=== PATIENT | female | born 1930 | race African-American/Black ===

== ENCOUNTER 2016-12-25 16:37 | Observation (INO) | payer OTHER ==
[~2016-12-25 16:37] MED LIST: AMLO5TAB22 PO; ASPI81 PO; LEVE500 PO; LOVA10TA PO; METO100T PO; MOBI15TA PO; POTA-267 PO; TRAZ50TA4 PO
[2016-12-25 16:45] VITALS: BP 145/68; PULSE 66; RESP 16; TEMP 97.3; O2SAT 94
[2016-12-25] MEDS ORDERED: SODIUM CHLORIDE 0.9% FLUSH 10 ML FLUSH IVF PRN (17:15)
[2016-12-25] MEDS ORDERED: HYDR12.57 PO (17:29)
[2016-12-25] MEDS ORDERED: AMLO5TAB2 PO (17:29)
[2016-12-25] MEDS ORDERED: METO50TA PO (17:29)
[2016-12-25] MEDS ORDERED: LEVE250 PO (17:29)
[2016-12-25] MEDS ORDERED: POTA10TA38 PO (17:29)
[2016-12-25] MEDS ORDERED: OMEP40CA2 PO (17:29)
[2016-12-25] MEDS ORDERED: ASPI81CH3 CHEW (17:29)
--- NOTE | 2016-12-25 17:36 | RADRPT ---
EXAM DATE/TIME: 12/25/2016 17:04 [facility] COMPARISON: CHEST SINGLE AP, September 29, 2014, 13:40. INDICATIONS : Syncope, Short of Breath, Chest Discomfort. MEDICAL HISTORY : Cardiovascular disease. Hypertension. SURGICAL HISTORY : Hysterectomy. ENCOUNTER: Initial ACUITY: 1 day PAIN SCORE: 2/10 LOCATION: Bilateral chest FINDINGS: A single view of the chest demonstrates no focal consolidation. No effusion. Heart size enlarged. Tor tuous aorta. CONCLUSION: 1. No acute findings. Cardiac enlargement. Alber Reynolds MD on December 25, 2016 at 17:31 Board Certified Radiologist. This report was verified electronically.
[2016-12-25 17:59] LABS: AUTOMATED NEUTROPHIL # 3.9 TH/MM3 (1.8-7.7); BASOPHIL % 0.4 % (0.0-2.0); EOSINOPHIL % 0.9 % (0.0-4.0); HEMATOCRIT 36.7 % (35.0-46.0); HEMO FLAGS DIFF FINAL; LYMPH % 21.7 % (9.0-44.0); LYMPHOCYTE # 1.3 TH/MM3 (1.0-4.8); MEAN CELL VOLUME 87.1 FL (80.0-100.0); MEAN CORPUSCULAR HGB CONC 33.3 % (32.0-36.0); MONO % 9.4 % (0.0-8.0); NEUT % 67.6 % (16.0-70.0); PLATELET COUNT 155 TH/MM3 (150-450); RED BLOOD COUNT 4.21 MIL/MM3 (4.00-5.30); RED CELL DISTRIBUTION WIDTH 14.5 % (11.6-17.2); WHITE BLOOD COUNT 5.8 TH/MM3 (4.0-11.0)
--- NOTE | 2016-12-25 18:00 | PD ---
HPI Chief Complaint: Syncope/Near-Syncope Time Seen by Provider: 17:00 Travel History International Travel<30 days: No Contact w/Intl Traveler<30days: No Traveled to known affect area: No History of Present Illness HPI Patient 86-year-old female presents with her family for evaluation of a syncopal episode while in [employer] today. Patient apparently is mourning the loss of a close relative. While sitting in a pew the patient slumped forward and was unable to be aroused for 1-2 minutes. Apparently she had her eyes open and was staring directly at the ground when she slumped over. According to her son who witnessed the event she was very clammy and sweaty during the event. Patient states that currently she feels fine. Denies any chest pain shortness of breath abdominal pain nausea vomiting diarrhea. She states she feels well now. Patient states she does have a history of seizures which she's been many years she's had a seizure. She isn't on antiepileptics. Apparently she's had seizures since a previous mild stroke PFSH Past Medical History Arthritis: No Asthma: No Autoimmune Disease: No Blood Disorders: No Anxiety: No Depression: Yes Heart Rhythm Problems: Yes Cancer: No Cardiac Catheterization: No Cardiovascular Problems: Yes High Cholesterol: Yes Chemotherapy: No Chest Pain: No Congestive Heart Failure: No COPD: No Cerebrovascular Accident: Yes (2012) Diabetes: No Diminished Hearing: No Gastrointestinal Disorders: Yes GERD: No Glaucoma: No Genitourinary: No Headaches: No Hepatitis: No Hiatal Hernia: No Hypertension: Yes Kidney Stones: No Musculoskeletal: Yes Neurologic: Yes Psychiatric: No Respiratory: Yes Myocardial Infarction: No Radiation Therapy: No Renal Failure: No Seizures: Yes Sickle Cell Disease: No Sleep Apnea: No Thyroid Disease: No Ulcer: No Menopausal: Yes : 8 Para: 8 Miscarriage: 0 : 0 Past Surgical History Abdominal Surgery: No AICD: No Cardiac Surgery: No Coronary Artery Bypass Graft: No Ear Surgery: No Endocrine Surgery: No Eye Surgery: No Genitourinary Surgery: No Gynecologic Surgery: Yes (HYSTERECTOMY 1962) Hysterectomy: Yes Oral Surgery: Yes (UPPER AND LOWER DENTURES) Pacemaker: No Thoracic Surgery: No Social History Alcohol Use: No Tobacco Use: No Substance Use: No Allergies-Medications (Allergen,Severity, Reaction): Coded Allergies: Naproxen (Verified Allergy, Severe, 12/25/16) Reported Meds & Prescriptions Reported Meds & Active Scripts Active Reported Hydrochlorothiazide 12.5 Mg Cap 12.5 Mg PO DAILY Aspirin 81 Low Dose (Aspirin) 81 Mg Chew 81 Mg CHEW DAILY Omeprazole 40 Mg Cap 40 Mg PO HS Metoprolol Tartrate 50 Mg Tab 50 Mg PO BID Amlodipine (Amlodipine Besylate) 5 Mg Tab 5 Mg PO DAILY Potassium Chloride Microencaps 10 Meq Tab 10 Meq PO DAILY Keppra (Levetiracetam) 250 Mg Tab 250 Mg PO BID Review of Systems Except as stated in HPI: all other systems reviewed are Neg Physical Exam Narrative GENERAL: Well-developed well-nourished quite pleasant in no apparent distress. SKIN: Warm and dry. HEAD: Atraumatic. Normocephalic. EYES: Pupils equal and round. No scleral icterus. No injection or drainage. ENT: No nasal bleeding or discharge. Mucous membranes pink and moist. NECK: Trachea midline. No JVD. CARDIOVASCULAR: Regular rate and rhythm. No murmur appreciated. 2+ bilateral equal pulses in all 4 extremities. RESPIRATORY: No accessory muscle use. Clear to auscultation. Breath sounds equal bilaterally. GASTROINTESTINAL: Abdomen soft, non-tender, nondistended. Hepatic and splenic margins not palpable. MUSCULOSKELETAL: No obvious deformities. No clubbing. No cyanosis. No edema. NEUROLOGICAL: Awake and alert. No obvious cranial nerve deficits. Motor grossly within normal limits. Normal speech. Cranial nerves II through XII are grossly intact and nonfocal, 5 out of 5 strength in all 4 extremities. PSYCHIATRIC: Appropriate mood and affect; insight and judgment normal. Data Data Last Documented VS Vital Signs Date Time Temp Pulse Resp B/P Pulse Ox O2 Delivery O2 Flow Rate FiO2 12/25/16 19:06 98.5 60 16 162/72 97 Room Air Orders Electrocardiogram (12/25/16 16:59) Ckmb (Isoenzyme) Profile (12/25/16 17:01) Complete Blood Count With Diff (12/25/16 17:01) Comprehensive Metabolic Panel (12/25/16 17:01) Magnesium (Mg) (12/25/16 17:01) Prothrombin Time / Inr (Pt) (12/25/16 17:01) Act Partial Throm Time (Ptt) (12/25/16 17:01) Troponin I (12/25/16 17:01) Chest, Single Ap (3/25/17 17:01) Ecg Monitoring (12/25/16 17:01) Bilateral Bp Monitoring (12/25/16 17:01) Iv Access Insert/Monitor (12/25/16 17:01) Oximetry (12/25/16 17:01) Oxygen Administration (12/25/16 17:01) Sodium Chloride 0.9% Flush (Ns Flush) (12/25/16 17:15) CKMB (12/25/16 17:30) CKMB% (12/25/16 17:30) Admit Order (Ed Use Only) (12/25/16 ) Labs Laboratory Tests Test 12/25/16 17:30 White Blood Count 5.8 TH/MM3 Red Blood Count 4.21 MIL/MM3 Hemoglobin 12.2 GM/DL Hematocrit 36.7 % Mean Corpuscular Volume 87.1 FL Mean Corpuscular Hemoglobin 29.0 PG Mean Corpuscular Hemoglobin 33.3 % Concent Red Cell Distribution Width 14.5 % Platelet Count 155 TH/MM3 Mean Platelet Volume 9.2 FL Neutrophils (%) (Auto) 67.6 % Lymphocytes (%) (Auto) 21.7 % Monocytes (%) (Auto) 9.4 % Eosinophils (%) (Auto) 0.9 % Basophils (%) (Auto) 0.4 % Neutrophils # (Auto) 3.9 TH/MM3 Lymphocytes # (Auto) 1.3 TH/MM3 Monocytes # (Auto) 0.5 TH/MM3 Eosinophils # (Auto) 0.0 TH/MM3 Basophils # (Auto) 0.0 TH/MM3 CBC Comment DIFF FINAL Differential Comment Prothrombin Time 11.0 SEC Prothromb Time International 1.0 RATIO Ratio Activated Partial 23.8 SEC Thromboplast Time Sodium Level 142 MEQ/L Potassium Level 3.4 MEQ/L Chloride Level 105 MEQ/L Carbon Dioxide Level 31.0 MEQ/L Anion Gap 6 MEQ/L Blood Urea Nitrogen 18 MG/DL Creatinine 1.06 MG/DL Estimat Glomerular Filtration 59 ML/MIN Rate Random Glucose 118 MG/DL Calcium Level 9.8 MG/DL Magnesium Level 2.2 MG/DL Total Bilirubin 1.0 MG/DL Aspartate Amino Transf 18 U/L (AST/SGOT) Alanine Aminotransferase 18 U/L (ALT/SGPT) Alkaline Phosphatase 124 U/L Total Creatine Kinase 111 U/L Creatine Kinase MB 1.2 NG/ML Troponin I 0.04 NG/ML Total Protein 7.4 GM/DL Albumin 3.6 GM/DL MDM Medical Decision Making Medical Screen Exam Complete: Yes Emergency Medical Condition: Yes Interpretation(s) EKG shows normal sinus rhythm with a normal axis and normal R-wave progression. There are T-wave inversions in V4 through V6. No ST segment elevations. Intervals within normal limits. Comparison to 07/02/2015 due to T-wave inversions in V4 through V6. This an abnormal EKG. Differential Diagnosis Seizure, ACS, AMI, cardiogenic syncope, neurogenic syncope, dehydration. Narrative Course Patient roomed in the emergency department, quite pleasant and in no apparent distress. Patient does have new T-wave inversions in V4 through V6 compared to 2014. She certainly would be quite atypical for ACS. Given her syncopal event versus seizure disorder I had suggested to the family that they could consider observation status for cardiac enzyme trending and they agree to this course of action. Diagnosis Primary Impression: Syncope Qualified Code: R55 - Syncope, unspecified syncope type Admitting Information Admitting Physician Requests: Observation Condition: Stable Robert Burton MD Dec 25, 2016 18:00
[2016-12-25 18:05] LABS: APTT (PATIENT) 23.8 SEC (24.3-30.1)
[2016-12-25 18:15] VITALS: BP_SYST 161; BP_SYST 165; BP_DIAS 74; BP_DIAS 76; PULSE 62
[2016-12-25 18:29] LABS: ALT (GPT) 18 U/L (10-53); ANION GAP 6 MEQ/L (5-15); AST (GOT) 18 U/L (15-37); BLOOD UREA NITROGEN 18 MG/DL (7-18); CHLORIDE 105 MEQ/L (98-107); GLOMERULAR FILTRATION RATE 59 ML/MIN (>89); MAGNESIUM 2.2 MG/DL (1.5-2.5); POTASSIUM 3.4 MEQ/L (3.5-5.1); SODIUM (NA) 142 MEQ/L (136-145)
[2016-12-25 18:33] LABS: ALKALINE PHOSPHATASE 124 U/L (45-117); CREATINE KINASE 111 U/L (26-192)
[2016-12-25 18:46] LABS: CKMB 1.2 NG/ML (0.5-3.6)
[2016-12-25 19:06] VITALS: BP 162/72; PULSE 60; RESP 16; TEMP 98.5; O2SAT 97
[2016-12-25] MEDS ORDERED: SODIUM CHLORIDE 0.9% FLUSH 10 ML FLUSH IV FLUSH PRN (19:30)
[2016-12-25] MEDS ORDERED: ACETAMINOPHEN/HYDROcodone 325 MG/5 MG TAB PO PRN (19:30)
[2016-12-25] MEDS ORDERED: ONDANSETRON HCL 4 MG/2 ML VIAL IVP PRN (19:30)
[2016-12-25] MEDS ORDERED: BISACODYL 10 MG SUPP PR PRN (19:30)
[2016-12-25] MEDS ORDERED: ACETAMINOPHEN 325 MG TAB PO PRN (19:30)
[2016-12-25] MEDS ORDERED: MORPHINE SULFATE 4 MG/ML INJ IV PRN (19:30)
[2016-12-25] MEDS ORDERED: POTASSIUM CHLORIDE 20 MEQ CONTROLLED RELEASE TAB PO ONE (19:45)
--- NOTE | 2016-12-25 19:50 | HHI.HP ---
[facility] Narinder Xiong, Admission Diagnosis Seizure vs Syncope Diagnoses: (1) Syncope Diagnosis: Principal (2) BJ (acute kidney injury) Diagnosis: Principal (3) Hypokalemia Diagnosis: Principal (4) HTN (hypertension) Diagnosis: Principal (5) Seizure disorder Diagnosis: Principal Travel History International Travel<30 Days: No Contact w/Intl Traveler <30 Da: No Traveled to Known Affected Are: No History of Present Illness This is an 86-year-old female with a PMH of HTN, Depression, CVA and Seizure Disorder who was brought to the ER by EMS after syncopal episode while at [employer]. Per patient, she was at a earlier today, then had gone back to the [employer]. While sitting at the pew, pt states she felt she was going to "black out". Asked someone to go get her Son, and in the meantime "passed out" . Pt/family deny any seizure activity. Reports last seizure was 2002, well controlled since then on Keppra 250mg bid. On arrival, BP 145/60, HR 66, O2 sat 94% on RA, Afebrile. CBC unremarkable. Creatinine 1.06, produces 0.55 on . K+ 3.4. CXR with no acute findings. Review of Systems Except as stated in HPI: all other systems reviewed are Neg ROS: 14 point review of systems otherwise negative. Past Family Social History Past Medical History PMH: HTN, Depression, CVA and Seizure Disorder Past Surgical History PAST SURGICAL HISTORY: Hysterectomy, Dental Surgery Allergies: Coded Allergies: Naproxen (Verified Allergy, Severe, 12/25/16) Family History PAST FAMILY HISTORY: Reviewed. No h/o DM or CAD Social History PAST SOCIAL HISTORY: Negative for alcohol, tobacco or drugs. Physical Exam Vital Signs Vital Signs Date Time Temp Pulse Resp B/P Pulse Ox O2 Delivery O2 Flow Rate FiO2 12/25/16 18:15 62 161/76 165/74 12/25/16 16:45 97.3 66 16 145/68 94 Room Air Physical Exam PE: GENERAL: Extremely pleasant elderly black female in no acute distress, appears much younger than stated age. Multiple family members at bedside. HEENT: PERRLA, EOMI. No scleral icterus or conjunctival pallor. No lid lag or facial droop. CARDIOVASCULAR: Regular rate and rhythm. No obvious murmurs to auscultation. No chest tenderness to palpation. RESPIRATORY: No obvious rhonchi or wheezing. Clear to auscultation. Breath sounds equal bilaterally. GASTROINTESTINAL: Abdomen soft, non-tender, nondistended. BS normal. MUSCULOSKELETAL: Extremities without clubbing, cyanosis, or edema. No obvious deformities. NEUROLOGICAL: Awake, alert and oriented x4. No focal neurologic deficits. Moving both upper and lower extremities spontaneously. Laboratory Laboratory Tests Test 12/25/16 17:30 White Blood Count 5.8 Red Blood Count 4.21 Hemoglobin 12.2 Hematocrit 36.7 Mean Corpuscular Volume 87.1 Mean Corpuscular Hemoglobin 29.0 Mean Corpuscular Hemoglobin 33.3 Concent Red Cell Distribution Width 14.5 Platelet Count 155 Mean Platelet Volume 9.2 Neutrophils (%) (Auto) 67.6 Lymphocytes (%) (Auto) 21.7 Monocytes (%) (Auto) 9.4 Eosinophils (%) (Auto) 0.9 Basophils (%) (Auto) 0.4 Neutrophils # (Auto) 3.9 Lymphocytes # (Auto) 1.3 Monocytes # (Auto) 0.5 Eosinophils # (Auto) 0.0 Basophils # (Auto) 0.0 CBC Comment DIFF FINAL Differential Comment Prothrombin Time 11.0 Prothromb Time International 1.0 Ratio Activated Partial 23.8 Thromboplast Time Sodium Level 142 Potassium Level 3.4 Chloride Level 105 Carbon Dioxide Level 31.0 Anion Gap 6 Blood Urea Nitrogen 18 Creatinine 1.06 Estimat Glomerular Filtration 59 Rate Random Glucose 118 Calcium Level 9.8 Magnesium Level 2.2 Total Bilirubin 1.0 Aspartate Amino Transf 18 (AST/SGOT) Alanine Aminotransferase 18 (ALT/SGPT) Alkaline Phosphatase 124 Total Creatine Kinase 111 Creatine Kinase MB 1.2 Troponin I 0.04 Total Protein 7.4 Albumin 3.6 Result Diagram: 12/25/16 1730 12/25/16 1730 Assessment and Plan Problem List: (1) Syncope ICD Code: R55 Status: Acute (2) Hypokalemia ICD Code: E87.6 Status: Acute (3) BJ (acute kidney injury) ICD Code: N17.9 Status: Acute (4) Seizure disorder ICD Code: G40.909 Status: Acute (5) HTN (hypertension) ICD Code: I10 Status: Acute Assessment and Plan A/P: 1. Syncope: Likely vasovagal. Will admit to Observation, place on telemetry. Initial trop negative, check serial cardiac enzymes. IVF for hydration, check Echo. 2. Hypokalemia: K+ 3.4, will replace and recheck labs in am. 3. BJ: Creatinine 1.06, previously 0.55 on 07/02/15. IVF for hydration, check U/a, hold HCTZ for now. Repeat labs in am. 4. Seizure Disorder: H/o Seizure after CVA in 2002, on Keppra 250mg bid, well controlled, no seizure since 2002. Will resume Keppra. 5. HTN: BP 140-160's while in ER. Monitor BP, resume home medications. 6. DVT Prophylaxis: SCD/Teds. 7. Social work for d/c planning as needed. 8. Case discussed w/ ER physician at length. Anni Chairez MD Dec 25, 2016 19:50
[2016-12-25] MEDS: SODIUM CHLOR 0.9% 1000 ML INJ 1,000 ML IV SCH (19:54)
[2016-12-25 20:22] VITALS: BP 162/72; TEMP 98.5
[2016-12-25 20:53] LABS: BLOOD, URINE TRACE (NEG); GLUCOSE,URINE NEG (NEG); HYALINE CAST, URINE 2 /lpf (RARE); KETONE, URINE NEG (NEG); MUCUS URINE FEW /lpf (OCC); NITRITE,URINE NEG (NEG); PH, URINE 5.5 (5.0-8.5); SQUAMOUS EPITHELIAL CELL URINE <1 /hpf (0-5); URINE COLOR YELLOW (YELLW/STRAW)
[2016-12-25 20:54] LABS: COMMENT (UR) CULT NOT INDICATED; CULTURE IF INDICATED CULT NOT INDICATED
[2016-12-25] MEDS: SODIUM CHLORIDE 0.9% FLUSH 10 ML FLUSH IV FLUSH SCH (21:00)
[2016-12-25 21:10] VITALS: BP 169/78; PULSE 67; RESP 18; TEMP 98.1; O2SAT 96
[2016-12-25] MEDS: levETIRAcetam 250 MG TAB PO SCH (22:14)
[2016-12-25] MEDS: METOPROLOL TARTRATE 50 MG TAB PO SCH (22:14)
[2016-12-25] MEDS: PANTOPRAZOLE SOD 40 MG DELAYED RELEASE TAB PO SCH (22:14)
[2016-12-26] VITALS (7 sets, daily range): BP systolic 131–153; BP diastolic 66–85; PULSE 56–89; RESP 17–18; TEMP 95.6–98.1; O2SAT 94–98
[2016-12-26] MEDS: SODIUM CHLOR 0.9% 1000 ML INJ 1,000 ML IV SCH ×2 (05:23→15:30)
--- NOTE | 2016-12-26 08:09 | HHI.PR ---
Subjective Remarks Follow up for syncope. The patient reports feeling back to normal today. Denies any lightheadedness or dizziness. Denies any chest pain, shortness of breath, palpitations, or abdominal complaints. The patient admits to not eating well yesterday, only had some oatmeal in the morning, was out at the and grave site all day and started complaining of the heat and feeling weak. She went back to the [employer] around 4pm and was about to eat lunch when the syncopal episode occurred. She believes she passed out because she was exhausted and didn 't eat all day. Objective Vitals Vital Signs Date Time Temp Pulse Resp B/P Pulse Ox O2 Delivery O2 Flow Rate FiO2 12/26/16 03:43 97.8 80 18 152/79 97 12/26/16 00:24 63 12/25/16 21:10 98.1 67 18 169/78 96 12/25/16 20:22 98.5 60 16 162/72 97 12/25/16 19:06 98.5 60 16 162/72 97 Room Air 12/25/16 18:15 62 161/76 165/74 12/25/16 16:45 97.3 66 16 145/68 94 Room Air Result Diagram: 12/25/16 1730 12/25/16 1730 Imaging Last Impressions Chest X-Ray 12/25/16 1701 Signed Impressions: Service Date/Time: Sunday, December 25, 2016 17:04 - CONCLUSION: 1. No acute findings. Cardiac enlargement. Alber Reynolds MD Objective Remarks GENERAL: Well-nourished, well-developed elderly female patient in [facility]. SKIN: Warm and dry. No rash. HEENT: Normocephalic. Atraumatic. Pupils equal and round. No scleral icterus. No injection or drainage. Mucous membranes pink and moist. NECK: Supple. Trachea midline. CARDIOVASCULAR: Regular rate and rhythm. S1, S2 noted. No murmur appreciated. RESPIRATORY: No accessory muscle use. Clear to auscultation. Breath sounds equal bilaterally. GASTROINTESTINAL: Abdomen soft, non-tender, nondistended. Normoactive bowel sounds x4. MUSCULOSKELETAL: No obvious deformities. Extremities without clubbing, cyanosis , or edema. NEUROLOGICAL: Awake and alert. No obvious cranial nerve deficits. Motor grossly within normal limits. 5/5 muscle strength in bilateral upper and lower extremities. Normal speech. PSYCHIATRIC: Appropriate mood and affect; insight and judgment normal. Medications and IVs Current Medications Medications (Trade) Dose Ordered Sig/Norma Route Start Time Stop Time Status Last Admin (NS 1000 ml Inj) 1,000 ml @ 100 mls/hr Q10H IV 12/25/16 19:30 12/26/16 05:23 (NS Flush) 2 ml UNSCH PRN IV FLUSH 12/25/16 19:30 (NS Flush) 2 ml BID IV FLUSH 12/25/16 21:00 (Zofran Inj) 4 mg Q6H PRN IVP 12/25/16 19:30 (Dulcolax Supp) 10 mg DAILY PRN TN 12/25/16 19:30 (Tylenol) 650 mg Q6H PRN PO 12/25/16 19:30 ([place] 5-325 Mg) 1 tab Q4H PRN PO 12/25/16 19:30 (Morphine Inj) 4 mg Q3H PRN IV 12/25/16 19:30 (Norvasc) 5 mg DAILY PO 12/26/16 09:00 (Aspirin Chew) 81 mg DAILY CHEW 12/26/16 09:00 (Keppra) 250 mg BID PO 12/25/16 21:00 12/25/16 22:14 (Lopressor) 50 mg BID PO 12/25/16 21:00 12/25/16 22:14 (Protonix) 40 mg HS PO 12/25/16 21:00 12/25/16 22:14 Urinary Catheter: No Vascular Central Line Catheter: No A/P Problem List: (1) Syncope ICD Code: R55 Status: Acute (2) Hypokalemia ICD Code: E87.6 Status: Acute (3) BJ (acute kidney injury) ICD Code: N17.9 Status: Acute (4) Seizure disorder ICD Code: G40.909 Status: Acute (5) HTN (hypertension) ICD Code: I10 Status: Acute Assessment and Plan 86-year-old female with a PMH of HTN, Depression, CVA and Seizure Disorder who was brought to the ER by EMS after syncopal episode while at [employer]. Per patient, she was at a earlier, then had gone back to the [employer]. While sitting at the [facility], pt states she felt she was going to "black out". Asked someone to go get her Son, and in the meantime "passed out". Syncope: Likely vasovagal and secondary to poor oral intake, dehydration, prolonged sun exposure. Monitor on telemetry. ACS ruled out with negative serial cardiac enzymes and EKG without acute ischemic changes. Give IVF for hydration. Check Carotid U/S and Echo. Orthostatics negative. Consult PT. Hypokalemia: K+ 3.4, replaced with po KCl. Repeat labs with K 3.7. Resolved. BJ: Creatinine 1.06, previously 0.55 on 07/02/15. UA unremarkable. Give IVF for hydration. Hold HCTZ for now. Repeat labs with Cr 0.7. Resolved. Seizure Disorder: H/o Seizure after CVA in 2002, on Keppra 250mg bid, well controlled, no seizure since 2002. Resumed Keppra. HTN: BP 140-160's while in ER. Monitor BP, resume home medications except HCTZ for now, can likely restart tomorrow. Hx of CVA: in 2002. Continue patient's aspirin. DVT Prophylaxis: SCD/Teds. Written by Herlinda Hernandez, acting as scribe for Dr. Zelaya on 12/26/16 at 08:57 All or portions of this note were transcribed by scribe Herlinda ROWLEY. I, Dr. Michelle Zelaya personally performed the history, physical exam, and medical decision making; and confirmed the accuracy of the information in the transcribed note. Authenticated by Dr. Michelle Zelaya on 12/26/16 at 08:57 Discharge Planning Possible discharge today if echo and carotid U/S negative. Problem Qualifiers (1) Syncope: Qualified Code: R55 - Syncope, unspecified syncope type Herlinda Hernandez PA-C Dec 26, 2016 08:09 Michelle Zelaya MD Dec 26, 2016 14:41
[2016-12-26] MEDS: levETIRAcetam 250 MG TAB PO SCH ×2 (08:48→21:26)
[2016-12-26] MEDS: METOPROLOL TARTRATE 50 MG TAB PO SCH ×2 (08:48→21:26)
[2016-12-26] MEDS: SODIUM CHLORIDE 0.9% FLUSH 10 ML FLUSH IV FLUSH SCH (08:48)
[2016-12-26 08:57] LABS: AUTOMATED NEUTROPHIL # 2.6 TH/MM3 (1.8-7.7); BASOPHIL # 0.1 TH/MM3 (0-0.2); BASOPHIL % 1.3 % (0.0-2.0); EOSINOPHIL # 0.1 TH/MM3 (0-0.4); EOSINOPHIL % 1.4 % (0.0-4.0); HEMATOCRIT 35.6 % (35.0-46.0); HEMO FLAGS DIFF FINAL; LYMPH % 35.1 % (9.0-44.0); LYMPHOCYTE # 1.7 TH/MM3 (1.0-4.8); MEAN CELL VOLUME 86.3 FL (80.0-100.0); MEAN CORPUSCULAR HEMOGLOBIN 28.8 PG (27.0-34.0); MEAN CORPUSCULAR HGB CONC 33.3 % (32.0-36.0); MONO % 8.6 % (0.0-8.0); NEUT % 53.6 % (16.0-70.0); PLATELET COUNT 156 TH/MM3 (150-450); RED BLOOD COUNT 4.13 MIL/MM3 (4.00-5.30); RED CELL DISTRIBUTION WIDTH 14.8 % (11.6-17.2); WHITE BLOOD COUNT 4.8 TH/MM3 (4.0-11.0)
[2016-12-26] MEDS ORDERED: amLODIPine BESYLATE 5 MG TAB PO SCH (09:00)
[2016-12-26] MEDS ORDERED: ASPIRIN 81 MG CHEW TAB CHEW SCH (09:00)
[2016-12-26 09:24] LABS: ALKALINE PHOSPHATASE 115 U/L (45-117); ALT (GPT) 18 U/L (10-53); ANION GAP 7 MEQ/L (5-15); AST (GOT) 20 U/L (15-37); BICARBONATE 29.2 MEQ/L (21.0-32.0); BLOOD UREA NITROGEN 13 MG/DL (7-18); CHLORIDE 107 MEQ/L (98-107); GLOMERULAR FILTRATION RATE 96 ML/MIN (>89); POTASSIUM 3.7 MEQ/L (3.5-5.1); SODIUM (NA) 143 MEQ/L (136-145); TOTAL BILIRUBIN ADULT 1.2 MG/DL (0.2-1.0)
--- NOTE | 2016-12-26 16:03 | EKG ---
Date Performed: 12/25/2016 Time Performed: 17:18:58 PTAGE: 86 years EKG: SINUS BRADYCARDIA INFERIOR MYOCARDIAL INFARCTION MODERATE T-WAVE ABNORMALITY, CONSIDER ANTE ROLATERAL ISCHEMIA T wave abnormality very slightly more prominent from the prior tracing ABNORMAL EC G PREVIOUS TRACING : 07/02/2015 18.47 DOCTOR: Mason Burnette Interpretating Date/Time 12/26/2016 16:01:05
--- NOTE | 2016-12-26 16:35 | RADRPT ---
EXAM DATE/TIME: 12/26/2016 12:34 [facility] COMPARISON: No previous studies available for comparison. INDICATIONS : Syncope. MEDICAL HISTORY : Hypercholesterolemia. Hypertension. Seizures. Cerebrovascular accident. Syncope. Irregular heartbeat. . Depression. SURGICAL HISTORY : Hysterectomy. Cataract removal. ENCOUNTER: Initial ACUITY: 1 day PAIN SCORE: 0/10 LOCATION: Bilateral neck PEAK SYSTOLIC VELOCITIES (cm/sec): ICA/CCA RATIO: Right: 1.0 Left: 1.6 ICA: Right: 77 Left: 96 CCA: Right: 77 Left: 60 ECA: Right: 75 Left: 64 VERTEBRAL: Right: 46 antegrade Left: 47 antegrade Elevated flow velocities and ICA/CCA ratios have been found to correlate with increased degrees of vessel stenosis, calculated as percentage of diameter relative to a normal segment of distal ICA/CCA FINDINGS: RIGHT CAROTID: No significant stenosis is visualized. The waveforms are within normal limits. LEFT CAROTID: No significant stenosis is visualized. The waveforms are within normal limits. VERTEBRAL ARTERIES: Antegrade flow is seen in both vertebral arteries. MISCELLANEOUS: None. CONCLUSION: 1. Trace plaque within the carotid arteries bilaterally. No significant stenosis. Vertebral artery fl ow antegrade. Alber Reynolds MD on December 26, 2016 at 16:32 Board Certified Radiologist. This report was verified electronically.
--- NOTE | 2016-12-26 17:30 | HHI.DCPOC ---
Discharge Care Plan Diagnosis: (1) Syncope (2) Dehydration (3) HTN (hypertension) (4) Seizure disorder Goals to Promote Your Health * To prevent worsening of your condition and complications * To maintain your health at the optimal level Directions to Meet Your Goals Take your medications as prescribed Follow your dietary instruction Follow activity as directed Keep your appointments as scheduled Take your immunizations and boosters as scheduled If your symptoms worsen call your PCP, if no PCP go to Urgent Care Center or Emergency Room Smoking is Dangerous to Your Health. Avoid second hand smoke Call the 24-hour hour crisis hotline for domestic abuse at Herlinda Hernandez PA-C Dec 26, 2016 17:30 Michelle Zelaya MD Dec 28, 2016 17:47
--- NOTE | 2016-12-26 19:00 | EC ---
Study Study Date:12/26/2016 STUDY CONCLUSIONS SUMMARY - Left ventricle: The cavity size was normal. Wall thickness was normal. Systolic function was normal. The estimated ejection fraction was 65%. Wall motion was normal; there were no regional wall motion abnormalities. - Mitral valve: Mild regurgitation. - Tricuspid valve: Mild regurgitation. - Pulmonary arteries: Systolic pressure was mildly increased. PA peak pressure: 42mm Hg (S). - Pericardium, extracardiac: There was no pericardial effusion. Large liver cyst. If LV function is below 40, please consider prescribing an ACEI or ARB or document rationale for non-use. PROCEDURE DATA STUDY STATUS: Elective. Procedure: Transthoracic echocardiography. Image quality was good. Scanning was performed from the parasternal, apical, and subcostal acoustic windows. Study completion: The patient tolerated the procedure well. Transthoracic echocardiography. M-mode, complete 2D, complete spectral Doppler, and color Doppler. Weight: Weight: 168.6lb. Patient status: Inpatient. CARDIAC ANATOMY LEFT VENTRICLE: The cavity size was normal. Wall thickness was normal. Systolic function was normal. The estimated ejection fraction was 65%. Wall motion was normal; there were no regional wall motion abnormalities. AORTIC VALVE: Trileaflet; normal thickness leaflets. Doppler: Transvalvular velocity was within the normal range. There was no stenosis. No regurgitation. Valve area: 1.93cm^2(VTI). Valve area: 1.74cm^2 (Vmax). Mean gradient: 4mm Hg (S). AORTA: Aortic root: The aortic root was normal in size. MITRAL VALVE: Structurally normal valve. Doppler: Transvalvular velocity was within the normal range. There was no evidence for stenosis. Mild regurgitation. LEFT ATRIUM: The atrium was normal in size. RIGHT VENTRICLE: The cavity size was normal. Wall thickness was normal. PULMONIC VALVE: Doppler: Transvalvular velocity was within the normal range. There was no evidence for stenosis. No regurgitation. TRICUSPID VALVE: Structurally normal valve. Doppler: Transvalvular velocity was within the normal range. Mild regurgitation. PULMONARY ARTERY: The main pulmonary artery was normal-sized. Systolic pressure was mildly increased. RIGHT ATRIUM: The atrium was normal in size. PERICARDIUM: There was no pericardial effusion. Large liver cyst. SYSTEMIC VEINS: Inferior vena cava: The vessel was normal in size. Patient weight: 168.6lb _Ejection fraction:_ 65-75% _Fractional shortening:_ 32% up to 5Kg 5-11.5Kg 11.6-22.9Kg 23-45Kg 45-57Kg Aortic Root 7-13 <17 13-22 17-27 17-27 LA diam 6-13 <23 24-38 33-47 37-40 RVID 10-17 7-15 7-15 7-18 8-17 LVIDd 12-22 <32 24-38 33-47 37-40 LVPW 2-4 3-6 5-7 6-8 7-8 IVS 2-4 3-6 5-7 6-8 7-8 BASIC MEASUREMENTS ADULT NORMAL Left ventricle LV internal dimension, ED, chordal level, 46.5 mm 43-52 PLAX LV internal dimension, ES, chordal level, 28.7 mm 23-38 PLAX Fractional shortening, chordal level, PLAX 38 % >29 LV posterior wall thickness, ED 8.23 mm IVS/LVPW ratio, ED 1.01 <1.3 Ventricular septum Septal thickness, ED 8.34 mm Aortic valve Leaflet separation 17 mm 15-26 Aorta Root diameter, ED 24 mm Left atrium Anterior-posterior dimension 29 mm BASIC MEASUREMENTS ADULT NORMAL Aortic valve Leaflet separation 17 mm 15-26 DOPPLER MEASUREMENTS ADULT NORMAL Main pulmonary artery Pressure, S *42 mm Hg =30 Aortic valve Peak velocity, S 121 cm/s Mean velocity, S 90.2 cm/s VTI, S 27.5 cm Mean gradient, S 4 mm Hg Valve area, VTI 1.93 cm^2 Valve area, Vmax 1.74 cm^2 Mitral valve Peak E-wave velocity 66.6 cm/s Peak A-wave velocity 78 cm/s Deceleration time 208 ms 150-230 Peak E/A ratio 0.9 Tricuspid valve Regurgitant peak velocity 288 cm/s Peak RV-RA gradient, S 33 mm Hg Maximal regurgitant velocity 288 cm/s Systemic veins Estimated CVP 10 mm Hg Right ventricle RV pressure, S *43 mm Hg <30 Pulmonic valve Peak velocity, S 54.1 cm/s LEGEND: Mean values are shown as u=mean value. Asterisk (*) velasquez values outside specified normal range. Prepared and signed by Amrik Gibbs [id number]
[2016-12-26] MEDS: PANTOPRAZOLE SOD 40 MG DELAYED RELEASE TAB PO SCH (21:26)
== END 2016-12-26 22:00 | disposition home or self-care (01) ==
LOC: NEPA 16:37 → NEDA 19:32 → NEPHCDU 20:59
PROVIDERS: ADMIT Hospitalist; ATTEND Hospitalist
DX: R55 Syncope and collapse (principal); E86.0 Dehydration; G40.909 Epilepsy, unspecified, not intractable, without status epilepticus; N17.9 Acute kidney failure, unspecified; E87.6 Hypokalemia; I10 Essential (primary) hypertension; F32.9 Major depressive disorder, single episode, unspecified; E78.00 Pure hypercholesterolemia, unspecified; Z86.73 Personal history of transient ischemic attack (TIA), and cerebral infarction without residual deficits; Z88.8 Allergy status to other drugs, medicaments and biological substances; Z79.82 Long term (current) use of aspirin
CPT/HCPCS: 71010; 80053; 81001; 82550; 82552; 83735; 84484; 85025; 85610; 85730; 93005; 93306; 93880; 96360; 99285; G0378; J7030

== ENCOUNTER 2017-05-10 12:27 | Observation (INO) | payer OTHER ==
[~2017-05-10] VITALS: Ht 170.2 cm; Wt 77.0 kg
[~2017-05-10 12:27] MED LIST changes: +AMLO5TAB2 PO; -AMLO5TAB22 PO; -ASPI81 PO; +ASPI81CH3 CHEW; +HYDR12.57 PO; +LEVE250 PO; -LEVE500 PO; -LOVA10TA PO; -METO100T PO; +METO50TA PO; -MOBI15TA PO; +OMEP40CA2 PO; -POTA-267 PO; +POTA10TA38 PO; -TRAZ50TA4 PO
[2017-05-10 12:29] VITALS: BP 150/74; PULSE 70; RESP 17; TEMP 98.4; O2SAT 98
--- NOTE | 2017-05-10 12:32 | PD ---
Physical Exam Time Seen by Provider: 12:31 Narrative 86 y/o female here for evaluation of 2-3 weeks of intermittent chest pain, left arm stiffness, mild dyspnea. Vital signs reviewed. Seen at triage desk. Awaiting bed placement. Data Data Last Documented VS Vital Signs Date Time Temp Pulse Resp B/P Pulse Ox O2 Delivery O2 Flow Rate FiO2 05/10/17 12:29 98.4 70 17 150/74 98 MDM Medical Record Reviewed: Yes Supervised Visit with PEEWEE: Sherman Snell May 10, 2017 12:32
--- NOTE | 2017-05-10 13:38 | RADRPT ---
EXAM DATE/TIME: 05/10/2017 12:39 [facility] COMPARISON: CHEST SINGLE AP, December 25, 2016, 17:04. INDICATIONS : Chest pain and shortness of breath. MEDICAL HISTORY : Hypertension. Cardiovascular disease. SURGICAL HISTORY : Hysterectomy. ENCOUNTER: Initial ACUITY: 3 weeks PAIN SCORE: 5/10 LOCATION: Bilateral chest Left FINDINGS: Heart is mildly enlarged. Lungs are free of significant congestion or acute airspace disease. There are no pleural effusions. Osseous structures appear intact. CONCLUSION: Cardiomegaly without evidence of acute cardiopulmonary process. Miki Corrales MD on May 10, 2017 at 13:36 Board Certified Radiologist. This report was verified electronically.
[2017-05-10] MEDS ORDERED: ASPIRIN 81 MG CHEW TAB CHEW ONE (14:15)
[2017-05-10 14:22] VITALS: BP 134/61; PULSE 55; O2SAT 99
[2017-05-10 15:56] LABS: AUTOMATED NEUTROPHIL # 2.8 TH/MM3 (1.8-7.7); BASOPHIL % 0.4 % (0.0-2.0); HEMATOCRIT 42.3 % (35.0-46.0); HEMO FLAGS DIFF FINAL; LYMPH % 28.5 % (9.0-44.0); LYMPHOCYTE # 1.3 TH/MM3 (1.0-4.8); MEAN CELL VOLUME 88.2 FL (80.0-100.0); MEAN CORPUSCULAR HEMOGLOBIN 29.5 PG (27.0-34.0); MEAN CORPUSCULAR HGB CONC 33.4 % (32.0-36.0); MONO % 7.9 % (0.0-8.0); NEUT % 62.2 % (16.0-70.0); PLATELET COUNT 184 TH/MM3 (150-450); RED CELL DISTRIBUTION WIDTH 14.3 % (11.6-17.2); WHITE BLOOD COUNT 4.6 TH/MM3 (4.0-11.0)
[2017-05-10 16:13] LABS: PROTHROMBIN TIME - PATIENT 10.7 SEC (9.8-11.6)
[2017-05-10 16:20] LABS: POTASSIUM 3.2 MEQ/L (3.5-5.1)
--- NOTE | 2017-05-10 17:06 | PD ---
HPI Chief Complaint: Chest Pain Time Seen by Provider: 14:13 Travel History International Travel<30 days: No Contact w/Intl Traveler<30days: No Traveled to known affect area: No History of Present Illness HPI This is an 86-year-old female who presents to the emergency department with left sided chest pain below the left breast, intermittent, starting mostly in the evenings and persisting throughout the night, moderate severity, constant. She has some shortness of breath when it occurs but then it typically resolves in the morning. It has been happening for several weeks but today the pain got worse so she came to the emergency department. PFSH Past Medical History Arthritis: No Asthma: Yes Autoimmune Disease: No Blood Disorders: No Anxiety: No Depression: Yes Heart Rhythm Problems: Yes Cancer: No Cardiac Catheterization: No Cardiovascular Problems: No High Cholesterol: Yes Chemotherapy: No Chest Pain: Yes Congestive Heart Failure: No COPD: No Cerebrovascular Accident: Yes (2002) Diabetes: No Diminished Hearing: No Endocrine: No Gastrointestinal Disorders: Yes GERD: No Glaucoma: No Genitourinary: No Headaches: No Hepatitis: No Hiatal Hernia: No Hypertension: Yes Immune Disorder: No Kidney Stones: No Musculoskeletal: No Neurologic: Yes (stroke x1) Psychiatric: No Reproductive: No Respiratory: No Myocardial Infarction: No Radiation Therapy: No Renal Failure: No Seizures: Yes Sickle Cell Disease: No Sleep Apnea: No Thyroid Disease: No Ulcer: No Tetanus Vaccination: > 5 Years ?: Not Menopausal: Yes : 8 Para: 8 Miscarriage: 0 : 0 Past Surgical History Abdominal Surgery: No AICD: No Cardiac Surgery: No Coronary Artery Bypass Graft: No Ear Surgery: No Endocrine Surgery: No Eye Surgery: No Genitourinary Surgery: No Gynecologic Surgery: Yes (HYSTERECTOMY 1962) Hysterectomy: Yes Neurologic Surgery: No Oral Surgery: Yes (UPPER AND LOWER DENTURES) Pacemaker: No Thoracic Surgery: No Social History Alcohol Use: No Tobacco Use: No Substance Use: No Allergies-Medications (Allergen,Severity, Reaction): Coded Allergies: Naproxen (Verified Allergy, Severe, 05/10/17) Reported Meds & Prescriptions Reported Meds & Active Scripts Active Reported Hydrochlorothiazide 12.5 Mg Cap 12.5 Mg PO DAILY Aspirin 81 Low Dose (Aspirin) 81 Mg Chew 81 Mg CHEW DAILY Omeprazole 40 Mg Cap 40 Mg PO HS Metoprolol Tartrate 50 Mg Tab 50 Mg PO BID Amlodipine (Amlodipine Besylate) 5 Mg Tab 5 Mg PO DAILY Potassium Chloride Microencaps 10 Meq Tab 10 Meq PO DAILY Keppra (Levetiracetam) 250 Mg Tab 250 Mg PO BID Review of Systems Except as stated in HPI: all other systems reviewed are Neg Physical Exam Narrative GENERAL:Well appearing, no acute distress SKIN: Focused skin assessment warm and dry. HEAD: Atraumatic. Normocephalic. EYES: Pupils equal and round. No injection or drainage. ENT: Moist mucous membranes NECK: Trachea midline. CARDIOVASCULAR: Regular rate and rhythm. No murmur appreciated. RESPIRATORY: Clear to auscultation. Breath sounds equal bilaterally. GASTROINTESTINAL: Abdomen soft, non-tender, nondistended. MUSCULOSKELETAL: No obvious deformities. NEUROLOGICAL: Awake and alert. No obvious cranial nerve deficits. Moving all extremities PSYCHIATRIC: Appropriate mood and affect; insight and judgment normal. Data Data Last Documented VS Vital Signs Date Time Temp Pulse Resp B/P Pulse Ox O2 Delivery O2 Flow Rate FiO2 05/10/17 14:22 55 134/61 99 Room Air 05/10/17 14:22 15 05/10/17 12:29 98.4 Orders Electrocardiogram (05/10/17 12:32) Complete Blood Count With Diff (05/10/17 12:32) Basic Metabolic Panel (Bmp) (05/10/17 12:32) Ckmb (Isoenzyme) Profile (05/10/17 12:32) Troponin I (05/10/17 12:32) Chest, Single Ap (05/10/17 12:32) Iv Access Insert/Monitor (05/10/17 12:32) Ecg Monitoring (05/10/17 12:32) Oxygen Administration (05/10/17 12:32) Oximetry (05/10/17 12:32) Prothrombin Time / Inr (Pt) (05/10/17 12:32) B-Type Natriuretic Peptide (05/10/17 12:33) Magnesium (Mg) (05/10/17 12:33) Act Partial Throm Time (Ptt) (05/10/17 12:33) Aspirin Chew (Aspirin Chew) (05/10/17 14:15) Admit Order (Ed Use Only) (05/10/17 16:32) Labs Laboratory Tests Test 05/10/17 13:00 White Blood Count 4.6 TH/MM3 Red Blood Count 4.80 MIL/MM3 Hemoglobin 14.1 GM/DL Hematocrit 42.3 % Mean Corpuscular Volume 88.2 FL Mean Corpuscular Hemoglobin 29.5 PG Mean Corpuscular Hemoglobin 33.4 % Concent Red Cell Distribution Width 14.3 % Platelet Count 184 TH/MM3 Mean Platelet Volume 8.8 FL Neutrophils (%) (Auto) 62.2 % Lymphocytes (%) (Auto) 28.5 % Monocytes (%) (Auto) 7.9 % Eosinophils (%) (Auto) 1.0 % Basophils (%) (Auto) 0.4 % Neutrophils # (Auto) 2.8 TH/MM3 Lymphocytes # (Auto) 1.3 TH/MM3 Monocytes # (Auto) 0.4 TH/MM3 Eosinophils # (Auto) 0.0 TH/MM3 Basophils # (Auto) 0.0 TH/MM3 CBC Comment DIFF FINAL Differential Comment Prothrombin Time 10.7 SEC Prothromb Time International 1.0 RATIO Ratio Activated Partial 28.0 SEC Thromboplast Time Sodium Level 139 MEQ/L Potassium Level 3.2 MEQ/L Chloride Level 101 MEQ/L Carbon Dioxide Level 30.0 MEQ/L Anion Gap 8 MEQ/L Blood Urea Nitrogen 17 MG/DL Creatinine 0.94 MG/DL Estimat Glomerular Filtration 68 ML/MIN Rate Random Glucose 116 MG/DL Calcium Level 9.7 MG/DL Magnesium Level 2.2 MG/DL Total Creatine Kinase 80 U/L Troponin I 0.05 NG/ML B-Type Natriuretic Peptide 29 PG/ML MDM Medical Decision Making Medical Screen Exam Complete: Yes Emergency Medical Condition: Yes Interpretation(s) afebrile, no tachycardia, mild hypertension no leukcoytosis mild hypokalemia troponin .05 ekg: Normal sinus rhythm, Q waves in the inferior leads Differential Diagnosis Acute coronary syndrome, costochondritis, GERD, gastritis, peptic ulcer disease Narrative Course This is an 86-year-old female who presents to the emergency department with chest discomfort that been going on intermittently for the past several months but is increased in severity today. She is placed on a monitor and an IV was established. Labs are obtained which demonstrate a troponin of 0.5 and are otherwise reassuring. EKG was nonspecific. Patient will be placed in the chest pain center for serial cardiac enzymes and risk stratification given her age. Diagnosis Primary Impression: Chest pain Qualified Code: R07.9 - Chest pain, unspecified type Admitting Information Admitting Physician Requests: Observation Estefani Mays MD May 10, 2017 17:06
[2017-05-10] MEDS ORDERED: SODIUM CHLORIDE 0.9% FLUSH 10 ML FLUSH IV FLUSH PRN (17:45)
[2017-05-10] MEDS ORDERED: NITROGLYCERIN 0.4 MG SL 25 TABS/BTL SL PRN (17:45)
[2017-05-10] MEDS ORDERED: ACETAMINOPHEN 500 MG CPLT PO PRN (17:45)
[2017-05-10] MEDS ORDERED: ONDANSETRON HCL 4 MG/2 ML VIAL IV PRN (17:45)
--- NOTE | 2017-05-10 18:57 | HHI.HP ---
HPI Primary Care Physician Narinder Xiong DO Chief Complaint Chest pain History of Present Illness 86-year-old female with history of hypertension, hyperlipidemia, and seizure disorder presents to emergency room for further evaluation of 3 weeks intermittent chest pain. Onset occurs each evening. Location under bilateral breasts and bilateral upper quadrats. Characterized as shooting pains. Duration seconds. Although will continue to wax and wane in severity. Associated symptoms include shortness of breath. No nausea, vomiting, or diaphoresis. During episodes states it hurts to breathe. No particular movement or position makes pain better or worse. Precipitating factor she relates to possible gas. Back she is tried Lauren-Simpson without relief. No known relieving factors. She is planning on going out of town next week and decided she should have discomfort evaluated prior to leaving town. Review of Systems General: No fatigue,weakness, fever, chills, or recent illness. Has been in her general state of health. HEENT: No KLEIN, no vision changes CV: As stated above. No CP, pressure, palpitations, or dizziness RESP: No SOB or cough. GI: As stated above. No nausea, vomiting, bowel changes, diarrhea, constipation , pain, distention, melena, or blood in the stool. No unintentional weight gain or weight loss : No dysuria EXT: No lower leg edema MS: No discomfort or change in ROM NEURO: History of seizure disorder, reporting last seizure years ago. Endorses syncopal episode December 2016-syncopal episode thought to be from heat exhaustion. No change in memory, difficulty with balance, LOC, motor/sensory deficits SKIN: No rashes, no concerning lesions Past Family Social History Allergies: Coded Allergies: Naproxen (Verified Allergy, Severe, 05/10/17) Past Medical History Seizure disorder, hypertension, depression, [id number], hypertension, GERD, syncopal episode Past Surgical History Hysterectomy Reported Medications Active Reported Hydrochlorothiazide 12.5 Mg Cap 12.5 Mg PO DAILY Aspirin 81 Low Dose (Aspirin) 81 Mg Chew 81 Mg CHEW DAILY Omeprazole 40 Mg Cap 40 Mg PO HS Metoprolol Tartrate 50 Mg Tab 50 Mg PO BID Amlodipine (Amlodipine Besylate) 5 Mg Tab 5 Mg PO DAILY Potassium Chloride Microencaps 10 Meq Tab 10 Meq PO DAILY Keppra (Levetiracetam) 250 Mg Tab 250 Mg PO BID Active Ordered Medications Current Medications Medications (Trade) Dose Ordered Sig/Norma Route Start Time Stop Time Status Last Admin (NS Flush) 2 ml UNSCH PRN IV FLUSH 05/10/17 17:45 (NS Flush) 2 ml BID IV FLUSH 05/10/17 21:00 (Tylenol) 500 mg Q4H PRN PO 05/10/17 17:45 (Zofran Inj) 4 mg Q6H PRN IV 05/10/17 17:45 (Nitrostat Sl) 0.4 mg Q5M PRN SL 05/10/17 17:45 Social History Known hypertension and hyperlipidemia. No known personal coronary artery disease or diabetes. Lifelong nonsmoker. Denies any alcohol or illegal drug use. Endorses an active lifestyle. Past cardiac testing 09/30/2014 Lexiscan-no evidence of stress-induced ischemia, EF 69%. Physical Exam Vital Signs Vital Signs Date Time Temp Pulse Resp B/P Pulse Ox O2 Delivery O2 Flow Rate FiO2 05/10/17 14:22 55 134/61 99 Room Air 05/10/17 14:22 15 99 Room Air 05/10/17 12:29 98.4 70 17 150/74 98 Physical Exam GENERAL: Alert WN, WD, NAD, pleasant, female who appears younger than stated age HEAD: NC, AT CV: RRR, without murmur, rub, gallop, no JVD, S1-S2 no S3-S4. RESP: Clear lungs throughout bilateral, no crackles, wheeze, rhonchi, symmetrical chest rise, nonlabored, able to speak in full sentences ABD: Soft, NT, ND, no masses, positive bowel tones, negative Cooper's sign. BACK: No CVAT EXT: Pulses +14, trace bilateral lower extremity edema MS: Normal tone 4 extremities, nontender, no obvious deformities, full range of motion NEURO: CN II through CN XII grossly intact, motor strength 5/5 PSYCH: A+O 3, pleasant affect, appropriate speech, appropriate mood and affect , insight and judgment SKIN: Normal turgor, normal texture Laboratory Laboratory Tests Test 05/10/17 05/10/17 13:00 18:00 White Blood Count 4.6 Red Blood Count 4.80 Hemoglobin 14.1 Hematocrit 42.3 Mean Corpuscular Volume 88.2 Mean Corpuscular Hemoglobin 29.5 Mean Corpuscular Hemoglobin 33.4 Concent Red Cell Distribution Width 14.3 Platelet Count 184 Mean Platelet Volume 8.8 Neutrophils (%) (Auto) 62.2 Lymphocytes (%) (Auto) 28.5 Monocytes (%) (Auto) 7.9 Eosinophils (%) (Auto) 1.0 Basophils (%) (Auto) 0.4 Neutrophils # (Auto) 2.8 Lymphocytes # (Auto) 1.3 Monocytes # (Auto) 0.4 Eosinophils # (Auto) 0.0 Basophils # (Auto) 0.0 CBC Comment DIFF FINAL Differential Comment Prothrombin Time 10.7 Prothromb Time International 1.0 Ratio Activated Partial 28.0 Thromboplast Time Sodium Level 139 Potassium Level 3.2 Chloride Level 101 Carbon Dioxide Level 30.0 Anion Gap 8 Blood Urea Nitrogen 17 Creatinine 0.94 Estimat Glomerular Filtration 68 Rate Random Glucose 116 Calcium Level 9.7 Magnesium Level 2.2 Total Creatine Kinase 80 Troponin I 0.05 0.06 B-Type Natriuretic Peptide 29 Result Diagram: 05/10/17 1300 05/10/17 1300 Imaging Last Impressions Chest X-Ray 05/10/17 1232 Signed Impressions: Service Date/Time: Wednesday, May 10, 2017 12:39 - CONCLUSION: Cardiomegaly without evidence of acute cardiopulmonary process. Miki Corrales MD Course EKG First EKG normal sinus rhythm with nonspecific T-wave changes Assessment and Plan Assessment and Plan #1 Chest painadmitted to chest pain center. Ruled out with 3 sets of EKGs, cardiac enzymes, monitor overnight. Will be seen and evaluated by Dr. Александр Argueta in a.m. Discussed likelihood of repeating chemical stress test in a.m. After evaluation by nuclear powerplant mechanic. Patient is agreeable to plan of care. First troponin 0.05 and second troponin 0.06. Will continue to monitor. Change in troponin mostly likely not cardiac in nature and upon further investigation baseline troponin have been within this range. #2 Hypertensioncontinue amlodipine, metoprolol, and HCTZ #3 GERDcontinue omeprazole #4 Seizure disordercontinue Keppra #5 [id number] mEq KCl, repeat in a.m. Zena Houston May 10, 2017 18:57
[2017-05-10] MEDS ORDERED: POTASSIUM CHLORIDE 20 MEQ CONTROLLED RELEASE TAB PO ONE (19:00)
[2017-05-10] MEDS: SODIUM CHLORIDE 0.9% FLUSH 10 ML FLUSH IV FLUSH SCH (20:21)
[2017-05-10 20:37] VITALS: BP 142/95; PULSE 61; RESP 18; TEMP 98; O2SAT 96
[2017-05-10] MEDS ORDERED: PANTOPRAZOLE SOD 40 MG DELAYED RELEASE TAB PO SCH (21:00)
[2017-05-10] MEDS ORDERED: NON-FORMULARY DRUG (Omeprazole 40 MG) PO SCH (21:00)
[2017-05-10] MEDS: levETIRAcetam 250 MG TAB PO SCH (22:50)
[2017-05-10] MEDS: METOPROLOL TARTRATE 50 MG TAB PO SCH (22:50)
[2017-05-11 00:01] VITALS: PULSE 59
[2017-05-11 01:26] VITALS: BP 136/74; PULSE 67; RESP 18; TEMP 98.1; O2SAT 97
[2017-05-11 04:44] VITALS: BP 154/83; PULSE 60; RESP 18; TEMP 98.4; O2SAT 100
[2017-05-11 08:00] VITALS: PULSE 55
[2017-05-11 08:42] VITALS: BP 168/84; PULSE 71; RESP 16; TEMP 97.2; O2SAT 97
[2017-05-11] MEDS ORDERED: amLODIPine BESYLATE 5 MG TAB PO SCH (09:00)
[2017-05-11] MEDS ORDERED: HYDROCHLOROTHIAZIDE 12.5 MG CAP PO SCH (09:00)
[2017-05-11] MEDS ORDERED: POTASSIUM CHLORIDE 10 MEQ CONTROLLED RELEASE TAB PO SCH (09:00)
[2017-05-11] MEDS ORDERED: REGADENOSON INJ 0.4 MG/5 ML SYR ONE (09:55)
[2017-05-11] MEDS: METOPROLOL TARTRATE 50 MG TAB PO SCH (11:33)
[2017-05-11] MEDS: levETIRAcetam 250 MG TAB PO SCH (11:33)
[2017-05-11] MEDS: SODIUM CHLORIDE 0.9% FLUSH 10 ML FLUSH IV FLUSH SCH (11:34)
--- NOTE | 2017-05-11 12:14 | RADRPT ---
EXAM DATE/TIME: 05/11/2017 09:26 [facility] COMPARISON: MYOCARDIAL PERF PHARM SPECT, GATED W/EF, September 30, 2014, 11:10. INDICATIONS : Intermitten chest pain, left arm stiffness and dyspnea. Angina. DOSE: 25.8 mCi Tc99m Myoview at stress. 8.5 mCi Tc99m Myoview at rest. 0.4 mg Lexiscan STRESS SYMPTOMS: Dyspnea, hot and chest pain. EJECTION FRACTION: 67% MEDICAL HISTORY : Hypercholesterolemia. Hypertension. Stroke. SURGICAL HISTORY : Hysterectomy. ENCOUNTER: Initial ACUITY: 3 weeks PAIN SCALE: 7/10 LOCATION: chest TECHNIQUE: The patient underwent pharmacologic stress with infusion of prescribed dose. Continuous ECG tracing was monitored during stress. Gated SPECT imaging was performed after stress and conventional SPECT i maging was performed at rest. The examination was performed on a SPECT/CT scanner, both attenuation and non-corrected datasets were reviewed. FINDINGS: DISTRIBUTION: The maximum perfused segment at stress is in the septal wall. PERFUSION STUDY: The pattern of perfusion at stress is within normal limits. GATED STUDY: There is intact wall motion and thickening without hypokinetic or dyskinetic segments. CONCLUSION: Normal study RISK CATEGORY: Low (<1% Annual Mortality Rate) Kennedy Patterson MD on May 11, 2017 at 12:09 Board Certified Radiologist. This report was verified electronically.
--- NOTE | 2017-05-11 12:52 | HHI.DCPOC ---
Discharge Care Plan Diagnosis: (1) Chest pain (2) HTN (hypertension) (3) Hyperlipidemia Goals to Promote Your Health * To prevent worsening of your condition and complications * To maintain your health at the optimal level Directions to Meet Your Goals Take your medications as prescribed Follow your dietary instruction Follow activity as directed Keep your appointments as scheduled Take your immunizations and boosters as scheduled If your symptoms worsen call your PCP, if no PCP go to Urgent Care Center or Emergency Room Smoking is Dangerous to Your Health. Avoid second hand smoke Call the 24-hour hour crisis hotline for domestic abuse at Atul Garces May 11, 2017 12:52
--- NOTE | 2017-05-11 15:40 | EKG ---
Date Performed: 05/10/2017 Time Performed: 21:33:03 PTAGE: 86 years EKG: Sinus rhythm WITH FIRST DEGREE AV BLOCK NONSPECIFIC T-WAVE ABNORMALITY ABNORMAL ECG PREVIOUS TRACING : 05/10/2017 18.27 Since previous tracing, no significant change noted DOCTOR: Александр Argueta Interpretating Date/Time 05/11/2017 15:38:52
--- NOTE | 2017-05-11 15:41 | EKG ---
Date Performed: 05/10/2017 Time Performed: 18:27:55 PTAGE: 86 years EKG: SINUS BRADYCARDIA NONSPECIFIC T-WAVE ABNORMALITY BORDERLINE ECG NO PREVIOUS TRACING DOCTOR: Александр Argueta Interpretating Date/Time 05/11/2017 15:39:37
--- NOTE | 2017-05-11 15:42 | EKG ---
Date Performed: 05/10/2017 Time Performed: 13:11:07 PTAGE: 86 years EKG: Sinus rhythm POSSIBLE INFERIOR MYOCARDIAL INFARCTION NON SPECIFIC T WAVE CHANGES BORDERLINE ECG PREVIOUS TRACING : 12/25/2016 17.18 DOCTOR: Александр Argueta Interpretating Date/Time 05/11/2017 15:40:40
--- NOTE | 2017-05-11 15:47 | TR ---
Date Performed: 05/11/2017 Time Performed: 10:09:53 DOCTOR: Александр Argueta DRUG LIST: LOSARTAN ASA AmLODIPINE METAPROLOL CLINICAL HISTORY: CHEST PAIN REASON FOR TEST: CHEST PAIN REASON FOR ENDING: OBSERVATION: CONCLUSION: Lexiscan stress test was performed under standard four minute protocol. Radionuclid e was injected one minute prior to ending the test. No electrocardiographic abormalities were present to suggest ischemia. Nuclear imaging and interpretation are pending. COMMENTS:
== END 2017-05-11 15:34 | disposition home or self-care (01) ==
LOC: NEPE 12:27 → NEDA 16:33 → NEPFCDU 18:15
PROVIDERS: ADMIT Internal Medicine Interventional Cardiology; ATTEND Internal Medicine Interventional Cardiology
DX: R07.89 Other chest pain (principal); I10 Essential (primary) hypertension; R06.02 Shortness of breath; I44.0 Atrioventricular block, first degree; E87.6 Hypokalemia; J45.909 Unspecified asthma, uncomplicated; E78.5 Hyperlipidemia, unspecified; G40.909 Epilepsy, unspecified, not intractable, without status epilepticus; F32.9 Major depressive disorder, single episode, unspecified; K21.9 Gastro-esophageal reflux disease without esophagitis; I51.7 Cardiomegaly; Z86.73 Personal history of transient ischemic attack (TIA), and cerebral infarction without residual deficits; Z79.899 Other long term (current) drug therapy; Z79.82 Long term (current) use of aspirin
CPT/HCPCS: 71010; 78452; 80048; 82550; 83735; 83880; 84484; 85025; 85610; 85730; 93005; 93017; 99285; A9502; G0378; J2785